=== PATIENT | female | born 1960 | race Caucasian/White ===

== ENCOUNTER 2017-08-17 16:19 | Observation (INO) ==
[2017-08-17] MEDS ORDERED: Ondansetron 4 MG/2 ML VIAL IVP ONE (16:28)
[2017-08-17] MEDS ORDERED: *HR* FentaNYL (PF) 100 MCG/2 ML VIAL IVP ONE (16:28)
[2017-08-17] MEDS ORDERED: Famotidine 20 MG/2 ML VIAL IVP ONE (16:28)
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
[2017-08-17 17:48] LABS: Basophils % 0.3 %; Eosinophils % 0.2 %; Hematocrit 40.9 % (35.3-44.9); Hemoglobin 13.3 g/dL (11.5-15.4); Immature Granulocytes % 0.4 % (0-4); Lymphocytes # 2.1 K/mcL (0.6-4.6); Lymphocytes % 18.5 %; Mean Corpuscular HGB Conc 32.5 g/dL (31.6-35.5); Mean Corpuscular Hemoglobin 27.3 pg (28.0-33.3); Mean Platelet Volume 10.8 fL (9.4-12.4); Monocytes # 0.7 K/mcL (0.0-1.3); Monocytes % 5.8 %; Neutrophils # 8.6 K/mcL (1.6-8.9); Platelet Count 201 K/mcL (140-400); Red Blood Count 4.87 M/mcL (3.82-4.97); Red Cell Distribution Width 13.7 % (11.5-14.5); Segmented Neutrophils % 74.8 %
[2017-08-17 17:55] LABS: INR 4.2
[2017-08-17 18:09] LABS: Prothrombin Time 47.2 Seconds (9.4-12.1)
[2017-08-17 18:10] LABS: Alanine Aminotransferase 11 Units/L (7-52); Albumin 3.9 g/dL (3.5-5.7); Albumin/Globulin Ratio 1.3 (1.1-2.2); Alkaline Phosphatase 83 Units/L (34-104); Amylase 22 Units/L (29-103); Aspartate Amino Transferase 14 Units/L (13-39); BUN/Creatinine Ratio 18 (6-26); Bilirubin,Total 0.3 mg/dL (0.3-1.0); Blood Urea Nitrogen 15 mg/dL (6-20); Calcium 8.8 mg/dL (8.6-10.3); Carbon Dioxide 21 mEq/L (23-29); Chloride 110 mEq/L (98-107); Glucose 127 mg/dL (70-105); Lipase 11 Units/L (11-82); Osmolality,Calculated 290 (280-300); Potassium 3.7 mEq/L (3.5-5.1); Sodium 139 mEq/L (136-145); Total Protein 6.9 g/dL (6.4-8.9); Troponin I < 0.03 ng/mL (< 0.04); eGFR For African Americans > 60 (> 60); eGFR For Non-African Americans > 60 (> 60)
[2017-08-17] MEDS ORDERED: Ipratropium/Albuterol Neb 3 ML IH ONE (18:32)
[2017-08-17 18:35] LABS: Bilirubin,Urine Small (Negative); Blood,Urine Moderate (Negative); Clarity,Urine Clear (Clear); Color,Urine Yellow (Yellow); Glucose,Urine (UA) Normal (Normal); Ketones,Urine 15 mg/dL (Negative); Leukocyte Esterase,Urine Negative (Negative); Nitrite,Urine Negative (Negative); PH,Urine 5.5 pH Units (5.0-8.0); Protein,Urine 100 mg/dL (Neg-Trace); Specific Gravity,Urine > 1.030 (1.010-1.025); Urobilinogen,Urine Normal (Normal)
[2017-08-17 18:37] LABS: Bacteria,Urine Few per hpf (None-Few); Hyaline Casts,Urine Moderate per lpf (None-Few); Squamous Epithelial Cell,Urine Many per lpf (None-Few)
[2017-08-17] MEDS ORDERED: methylPREDNISolone 125 MG/2 ML VIAL IVP ONE (18:39)
[2017-08-17 19:26] LABS: RBC,Urine 0-3 per hpf (0-3)
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
[2017-08-17] MEDS ORDERED: Furosemide 20 MG TABLET PO PRN (19:52)
[2017-08-17] MEDS ORDERED: Naloxone 0.4 MG/ML INJ IVP PRN (19:53)
[2017-08-17] MEDS ORDERED: Ondansetron 4 MG/2 ML VIAL IVP PRN (19:55)
[2017-08-17] MEDS ORDERED: Azithromycin 250 MG TABLET PO SCH (20:00)
[2017-08-17] MEDS: levoFLOXacin 750 MG TABLET PO SCH (22:06)
[2017-08-17] MEDS: Gabapentin 300 MG CAPSULE PO SCH (22:06)
[2017-08-17] MEDS: Famotidine 20 MG TABLET PO SCH (22:07)
[2017-08-17] MEDS: Nicotine 21 MG PATCH.TD24 TD SCH (22:07)
[2017-08-17] MEDS: Mirtazapine 15 MG TABLET PO SCH (22:07)
[2017-08-18] MEDS: Acetaminophen 325 MG TABLET PO PRN ×2 (03:58→20:31)
[2017-08-18 04:21] LABS: Basophils % 0.2 %; Hematocrit 41.8 % (35.3-44.9); Hemoglobin 13.5 g/dL (11.5-15.4); Immature Granulocytes % 0.5 % (0-4); Lymphocytes # 0.9 K/mcL (0.6-4.6); Lymphocytes % 14.9 %; Mean Corpuscular HGB Conc 32.3 g/dL (31.6-35.5); Mean Corpuscular Hemoglobin 26.8 pg (28.0-33.3); Mean Corpuscular Volume 83.1 fL (83.0-100.0); Mean Platelet Volume 10.9 fL (9.4-12.4); Monocytes # 0.1 K/mcL (0.0-1.3); Neutrophils # 4.9 K/mcL (1.6-8.9); Platelet Count 201 K/mcL (140-400); Red Blood Count 5.03 M/mcL (3.82-4.97); Red Cell Distribution Width 13.7 % (11.5-14.5); Segmented Neutrophils % 83.4 %
[2017-08-18 04:46] LABS: BUN/Creatinine Ratio 17 (6-26); Blood Urea Nitrogen 16 mg/dL (6-20); Carbon Dioxide 21 mEq/L (23-29); Chloride 110 mEq/L (98-107); Glucose 240 mg/dL (70-105); Magnesium 1.9 mg/dL (1.6-2.6); Osmolality,Calculated 299 (280-300); Sodium 140 mEq/L (136-145); eGFR For African Americans > 60 (> 60); eGFR For Non-African Americans > 60 (> 60)
[2017-08-18] MEDS ORDERED: Nitroglycerin 1 INCH/GM PACKET TP ONE (04:52)
[2017-08-18 04:55] LABS: INR 5.6; Prothrombin Time 62.2 Seconds (9.4-12.1)
[2017-08-18] MEDS: traMADol 50 MG TABLET PO PRN ×2 (05:50→14:55)
[2017-08-18] MEDS: predniSONE 20 MG TABLET PO SCH (08:30)
[2017-08-18] MEDS: levoFLOXacin 750 MG TABLET PO SCH (08:30)
[2017-08-18] MEDS: Isosorbide MONOnitrate (24 HR) 30 MG TAB.ER.24H PO SCH (08:32)
[2017-08-18] MEDS: Gabapentin 300 MG CAPSULE PO SCH ×2 (08:32→21:32)
[2017-08-18] MEDS: Famotidine 20 MG TABLET PO SCH (08:33)
[2017-08-18] MEDS: Nicotine 21 MG PATCH.TD24 TD SCH (08:33)
--- NOTE | 2017-08-18 15:18 | Internal Med Progress Note ---
Date of Encounter: 08/18/17 Time of Encounter: 16:20 - Assessment and plan (1) Supratherapeutic INR Current Visit: Yes Status: Acute Assessment and plan: Prior history of CVA 5 years ago. Coumadin held, 5.6 today. Continue to have pharmacy dose. (2) Acute bronchitis Current Visit: Yes Status: Acute Assessment and plan: Likely COPD, though no formal diagnosis. Pt is a smoker. Continue po steroids, Duonebs, Levaquin po. 02 as needed to maintain sats > 92% Qualifiers: Bronchitis organism: unspecified organism Qualified Code(s): J20.9 - Acute bronchitis, unspecified (3) Coronary artery disease Current Visit: Yes Status: Chronic Assessment and plan: Patient denies chest pain. Continue beta molly, Imdur, ACEI, Crestor, warfarin. Continue telemetry Qualifiers: Coronary Disease-Associated Artery/Lesion type: [place] artery [place] vs. transplanted heart: [place] heart Associated angina: without angina Qualified Code(s): I25.10 - Atherosclerotic heart disease of [place] coronary artery without angina pectoris (4) DVT prophylaxis Current Visit: Yes Status: Acute Assessment and plan: Patient is supratherapeutic on Coumadin. Pharmacy to dose. (5) Depression Current Visit: Yes Status: Chronic Assessment and plan: Chronic. Continue home medications. Qualifiers: Depression Type: major depressive disorder Major depression recurrence: unspecified whether recurrent Active/Remission status: in full remission Qualified Code(s): F32.5 - Major depressive disorder, single episode, in full remission (6) Tobacco abuse Current Visit: Yes Status: Acute Assessment and plan: Nicotine patch. Continue smoking cessation education. (7) Abdominal pain Current Visit: Yes Status: Acute Assessment and plan: Patient reports diffuse abdominal pain. Onset 2-3 weeks. She denies nausea or vomiting. Her abdomen is soft, rounded, tender to palpation in the upper abdomen. Abdomen and pelvis CT and chest x-ray negative for intra-abdominal or significant abnormalities. Urine with a moderate amount of blood, 5-15 white cells, many epithelial cells, small amount of bilirubin, moderate hyaline casts. No indication of infection. Pt suggests that her pain might be due to withdrawl from Ativan and narcotic pain medications, she stopped taking Ativan in 02/26 and pain medications in . *Retroperitoneal US ordered, will consider nephrology consult based on results. Tylenol for pain Abdomen/Pelvis CT 08/17/17 16:27 IMPRESSION: No acute intra-abdominal abnormality identified. No evident diverticulitis. Normal appendix. Normal amount of colonic stool. Mild diverticulosis of the left colon. D/ / Arun Wharton MD / Arun Wharton MD Interpreting Provider: Arun Wharton MD Chest X-Ray 08/17/17 16:27 IMPRESSION: Minimal pulmonary vascular congestion. Thoracic aortic endograft. No other significant abnormality. D/ / Arun Wharton MD / Arun Wharton MD Interpreting Provider: Arun Wharton MD *Retroperitoneal US ordered, will consider nephrology consult based on results. Qualifiers: Abdominal location: epigastric Qualified Code(s): R10.13 - Epigastric pain - Time Spent With Patient Total time spent is greater than 50% in coordination of care (as documented) at patient's floor/unit and/or counseling patient: less than 15 minutes - Subjective Interval history: Patient was seen and assessed at bedside at 11:20 AM. Patient was alert, awake , oriented, she reports 2-3 weeks history of upper abdominal pain. Patient also reports that she takes her warfarin as she is supposed to and she has a home monitor which has been fine. She denies shortness of breath and is not requiring supplemental oxygen at this time. Her abdomen is soft, nontender to palpation. She states that she is not sure of her abdominal pain is due to having her Ativan and narcotic pain medications taken away from her right primary care. She reports that she is upset about this and she is in the process of changing family doctors right now. - Constitutional Vitals: Temp Pulse Resp BP Pulse Ox 97.8 F 68 12 174/98 98 08/18/17 10:34 08/18/17 10:34 08/18/17 10:34 08/18/17 10:21 08/18/17 10:34 General appearance: Present: cooperative, A&O X 3, pleasant, no acute distress, answers questions appropriately - Head Head exam: Present: atraumatic, normal inspection, normocephalic - Eye Eye exam: Present: normal appearance, conjuntiva pink, sclera anicteric - Neck Neck exam general surgery: Present: supple, trachea midline. Absent: lymphadenopathy, tenderness - Respiratory Respiratory exam: Present: CTAB. Absent: accessory muscle use, rales, rhonchi, wheezes - Cardiovascular Cardiovascular exam: Present: RRR, +S1, +S2. Absent: diastolic murmur, gallop, rubs, systolic murmur - GI/Abdominal GI/Abdominal exam: Present: normal bowel sounds, soft. Absent: distended, hepatomegaly, tenderness - Extremities Exam Extremities exam: Present: normal capillary refill, normal inspection, warm, radial pulses palpable and symmetrical. Absent: calf tenderness, cyanotic, pedal edema, tenderness - Neurological Exam Neurological exam: Present: alert, oriented X3, no focal deficits. Absent: facial droop, speech deficit - Skin Skin exam: Present: dry, intact, normal color, warm. Absent: rash Internal Medicine: Result - Labs CBC & Chem 7: 08/18/17 03:48 08/18/17 03:48 Labs: Short CBC 08/18/17 Range/Units 03:48 WBC 5.8 (4.3-11.1) K/mcL Hgb 13.5 (11.5-15.4) g/dL Hct 41.8 (35.3-44.9) % Plt Count 201 (140-400) K/mcL Neutrophils # 4.9 (1.6-8.9) K/mcL BMP 08/18/17 03:48 Sodium 140 Potassium 5.0 D Chloride 110 H Carbon Dioxide 21 L BUN 16 Creatinine 0.92 Glucose 240 H Calcium 9.0 - ABG Interpretation ABG results: PT/INR, D-dimer PT 62.2 Seconds (9.4-12.1) H* 08/18/17 03:48 Consult Discharge Plan - Plan Referrals: Angie Bermudez [Primary Care Provider] - 08/23/17 2:40 pm
--- NOTE | 2017-08-18 17:41 | Electrocardiograph Report ---
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
[2017-08-18] MEDS ORDERED: Warfarin perPT PO PRN (18:00)
[2017-08-18] MEDS: Mirtazapine 15 MG TABLET PO SCH (21:32)
[2017-08-19 02:47] LABS: Basophils % 0.4 %; Eosinophils % 0.1 %; Hematocrit 41.7 % (35.3-44.9); Hemoglobin 13.4 g/dL (11.5-15.4); Immature Granulocytes % 0.4 % (0-4); Immature Platelets 3.6 % (1.1-6.1); Lymphocytes # 3.2 K/mcL (0.6-4.6); Lymphocytes % 30.1 %; Mean Corpuscular HGB Conc 32.1 g/dL (31.6-35.5); Mean Corpuscular Hemoglobin 26.8 pg (28.0-33.3); Mean Corpuscular Volume 83.4 fL (83.0-100.0); Mean Platelet Volume 10.4 fL (9.4-12.4); Monocytes # 0.7 K/mcL (0.0-1.3); Monocytes % 6.5 %; Neutrophils # 6.6 K/mcL (1.6-8.9); Platelet Count 236 K/mcL (140-400); Red Cell Distribution Width 14.1 % (11.5-14.5); Segmented Neutrophils % 62.5 %
[2017-08-19 02:54] LABS: INR 3.5; Prothrombin Time 38.6 Seconds (9.4-12.1)
[2017-08-19 03:09] LABS: BUN/Creatinine Ratio 24 (6-26); Blood Urea Nitrogen 23 mg/dL (6-20); Calcium 9.3 mg/dL (8.6-10.3); Carbon Dioxide 24 mEq/L (23-29); Chloride 111 mEq/L (98-107); Glucose 118 mg/dL (70-105); Osmolality,Calculated 297 (280-300); Sodium 141 mEq/L (136-145); eGFR For African Americans > 60 (> 60); eGFR For Non-African Americans 60 (> 60)
[2017-08-19] MEDS: Acetaminophen 325 MG TABLET PO PRN ×3 (03:22→21:33)
[2017-08-19] MEDS ORDERED: Menthol 9.1 MG LOZENGE PO PRN (04:42)
[2017-08-19] MEDS: traMADol 50 MG TABLET PO PRN ×2 (05:02→16:38)
[2017-08-19] MEDS: predniSONE 20 MG TABLET PO SCH (07:52)
[2017-08-19] MEDS: Isosorbide MONOnitrate (24 HR) 30 MG TAB.ER.24H PO SCH (07:53)
[2017-08-19] MEDS: levoFLOXacin 750 MG TABLET PO SCH (07:53)
[2017-08-19] MEDS: Famotidine 20 MG TABLET PO SCH (07:53)
[2017-08-19] MEDS: Gabapentin 300 MG CAPSULE PO SCH ×2 (07:53→21:34)
[2017-08-19] MEDS: Nicotine 21 MG PATCH.TD24 TD SCH (07:54)
[2017-08-19] MEDS ORDERED: amLODIPine 5 MG TABLET PO SCH (15:30)
--- NOTE | 2017-08-19 15:33 | Internal Med Progress Note ---
Date of Encounter: 08/19/17 Time of Encounter: 12:15 - Assessment and plan (1) Supratherapeutic INR Current Visit: Yes Status: Acute Assessment and plan: Prior history of CVA 5 years ago. Coumadin held and therapeutic at 3.5 today. Continue to have pharmacy dose. (2) Acute bronchitis Current Visit: Yes Status: Acute Assessment and plan: Likely COPD, though no formal diagnosis. Pt is a smoker. Continue po steroids, Duonebs, Levaquin po. 02 as needed to maintain sats > 92% Likely discharge tomorrow on po medications. Qualifiers: Bronchitis organism: unspecified organism Qualified Code(s): J20.9 - Acute bronchitis, unspecified (3) Coronary artery disease Current Visit: Yes Status: Chronic Assessment and plan: Patient denies chest pain. Continue beta molly, Imdur, ACEI, Crestor, warfarin. Continue telemetry Qualifiers: Coronary Disease-Associated Artery/Lesion type: [place] artery [place] vs. transplanted heart: [place] heart Associated angina: without angina Qualified Code(s): I25.10 - Atherosclerotic heart disease of [place] coronary artery without angina pectoris (4) DVT prophylaxis Current Visit: Yes Status: Acute Assessment and plan: Patient is on Coumadin. Pharmacy to dose. (5) Depression Current Visit: Yes Status: Chronic Assessment and plan: Continue home medications. Qualifiers: Depression Type: major depressive disorder Major depression recurrence: unspecified whether recurrent Active/Remission status: in full remission Qualified Code(s): F32.5 - Major depressive disorder, single episode, in full remission (6) Tobacco abuse Current Visit: Yes Status: Acute Assessment and plan: Nicotine patch. Continue smoking cessation education. Rx for home. (7) Abdominal pain Current Visit: Yes Status: Acute Assessment and plan: Patient reports diffuse abdominal pain, some better today. She denies nausea or vomiting. Her abdomen is soft, rounded, tender to palpation in the upper abdomen. Repeat UA ordered to compare to prior. *Retroperitoneal US ordered, will consider nephrology consult based on results. Pending. Tylenol for pain Abdomen/Pelvis CT 08/17/17 16:27 IMPRESSION: No acute intra-abdominal abnormality identified. No evident diverticulitis. Normal appendix. Normal amount of colonic stool. Mild diverticulosis of the left colon. D/ / Arun Wharton MD / Arun Wharton MD Interpreting Provider: Arun Wharton MD Chest X-Ray 08/17/17 16:27 IMPRESSION: Minimal pulmonary vascular congestion. Thoracic aortic endograft. No other significant abnormality. D/ / Arun Wharton MD / Arun Wharton MD Interpreting Provider: Arun Wharton MD *Retroperitoneal US ordered, will consider nephrology consult based on results. Qualifiers: Abdominal location: epigastric Qualified Code(s): R10.13 - Epigastric pain - Time Spent With Patient Total time spent is greater than 50% in coordination of care (as documented) at patient's floor/unit and/or counseling patient: less than 15 minutes - Subjective Interval history: Patient was seen and assessed at bedside at 1215 AM. Patient was alert, awake, oriented, and states that her abdominal pain is some better today. She denies shortness of breath and is not requiring supplemental oxygen at this time. Denies n/v/d, chest pain, headache, vision changes. Awaiting results for US prior to discharge. - Constitutional Vitals: Temp Pulse Resp BP Pulse Ox 97.4 F L 52 16 166/85 98 08/19/17 11:36 08/19/17 11:36 08/19/17 11:36 08/19/17 11:36 08/19/17 11:36 General appearance: Present: cooperative, A&O X 3, pleasant, no acute distress, answers questions appropriately - Head Head exam: Present: atraumatic, normal inspection, normocephalic - Eye Eye exam: Present: normal appearance, conjuntiva pink, sclera anicteric - Neck Neck exam general surgery: Present: supple, trachea midline. Absent: lymphadenopathy, tenderness - Respiratory Respiratory exam: Present: CTAB. Absent: accessory muscle use, chest wall tenderness, rales, rhonchi, wheezes - Cardiovascular Cardiovascular exam: Present: RRR, +S1, +S2. Absent: diastolic murmur, gallop, rubs, systolic murmur - GI/Abdominal GI/Abdominal exam: Present: normal bowel sounds, soft, tenderness. Absent: distended, hepatomegaly - Extremities Exam Extremities exam: Present: normal capillary refill, normal inspection, warm, radial pulses palpable and symmetrical. Absent: calf tenderness, cyanotic, pedal edema, tenderness - Neurological Exam Neurological exam: Present: alert, oriented X3, no focal deficits. Absent: facial droop, speech deficit - Skin Skin exam: Present: dry, intact, normal color, warm. Absent: rash Internal Medicine: Result - Labs CBC & Chem 7: 08/19/17 02:35 08/19/17 02:35 Labs: Short CBC 08/19/17 Range/Units 02:35 WBC 10.6 D (4.3-11.1) K/mcL Hgb 13.4 (11.5-15.4) g/dL Hct 41.7 (35.3-44.9) % Plt Count 236 (140-400) K/mcL Neutrophils # 6.6 (1.6-8.9) K/mcL BMP 08/19/17 02:35 Sodium 141 Potassium 4.0 Chloride 111 H Carbon Dioxide 24 BUN 23 H Creatinine 0.96 Glucose 118 H Calcium 9.3 - ABG Interpretation ABG results: PT/INR, D-dimer PT 38.6 Seconds (9.4-12.1) H 08/19/17 02:35 - Impressions Impressions Retroperitoneum Ultrasound 08/19/17 13:30 IMPRESSION: Unremarkable ultrasound of the kidneys and urinary bladder. D/ / Rex Lamas / Rex Lamas Interpreting Provider: Rex Lamas Consult Discharge Plan - Plan Referrals: Angie Bermudez [Primary Care Provider] - 08/23/17 2:40 pm
[2017-08-19 19:57] LABS: Bilirubin,Urine Negative (Negative); Blood,Urine Small (Negative); Clarity,Urine Clear (Clear); Color,Urine Yellow (Yellow); Glucose,Urine (UA) Normal (Normal); Ketones,Urine Negative (Negative); Leukocyte Esterase,Urine Negative (Negative); Nitrite,Urine Negative (Negative); PH,Urine 5.5 pH Units (5.0-8.0); Protein,Urine 30 mg/dL (Neg-Trace); Specific Gravity,Urine >= 1.030 (1.010-1.025); Urobilinogen,Urine Normal (Normal)
[2017-08-19] MEDS ORDERED: Melatonin 3 MG TABLET PO SCH (21:00)
[2017-08-19 21:26] LABS: Mucus,Urine Many (Few); Squamous Epithelial Cell,Urine Many per lpf (None-Few)
[2017-08-19 21:27] LABS: Bacteria,Urine Few per hpf (None-Few); Hyaline Casts,Urine Few per lpf (None-Few); RBC,Urine 0-3 per hpf (0-3)
[2017-08-19] MEDS: Mirtazapine 15 MG TABLET PO SCH (21:34)
[2017-08-20 03:59] LABS: INR 2.4
[2017-08-20 07:31] VITALS: BP 148/69
[2017-08-20] MEDS ORDERED: amLODIPine 5 MG TABLET PO SCH (09:00)
[2017-08-20] MEDS: Nicotine 21 MG PATCH.TD24 TD SCH (09:04)
[2017-08-20] MEDS: Famotidine 20 MG TABLET PO SCH (09:05)
[2017-08-20] MEDS: Isosorbide MONOnitrate (24 HR) 30 MG TAB.ER.24H PO SCH (09:05)
[2017-08-20] MEDS: predniSONE 20 MG TABLET PO SCH (09:05)
[2017-08-20] MEDS: levoFLOXacin 750 MG TABLET PO SCH (09:05)
[2017-08-20] MEDS: traMADol 50 MG TABLET PO PRN (09:06)
[2017-08-20] MEDS: Gabapentin 300 MG CAPSULE PO SCH (09:06)
--- NOTE | 2017-08-20 14:18 | Discharge Summary ---
- NOTES TO OUTPATIENT PROVIDER Notes to Outpatient Provider: Pt was admitted for SOB, upper abdominal pain, dry cough, subjective fevers and chills. Pt had mild leukocytosis and supratherapeutic INR. Both have resolved. Warfarin was held for 2 nights and INR normalized. Date of Encounter: 08/20/17 Time of Encounter: 10:40 - Discharge Diagnosis (1) Supratherapeutic INR Priority: Secondary Status: Resolved Assessment and Plan: 2.4 today. Therapeutic level. (2) Acute bronchitis Priority: Secondary Status: Acute Assessment and Plan: Likely COPD, though no formal diagnosis. Continue po steroids, Duonebs, Levaquin po. 02 as needed to maintain sats > 92% I have encouraged smoking cessation, patient verbalized understanding and agreement. Qualifiers: Bronchitis organism: unspecified organism Qualified Code(s): J20.9 - Acute bronchitis, unspecified (3) Coronary artery disease Priority: Secondary Status: Chronic Assessment and Plan: Patient denies chest pain. Continue beta molly, Imdur, ACEI, Crestor, warfarin. Qualifiers: Coronary Disease-Associated Artery/Lesion type: [place] artery [place] vs. transplanted heart: [place] heart Associated angina: without angina Qualified Code(s): I25.10 - Atherosclerotic heart disease of [place] coronary artery without angina pectoris (4) DVT prophylaxis Priority: Secondary Status: Acute Assessment and Plan: Patient is on Coumadin. Pharmacy to dose. INR therapeutic now. (5) Depression Priority: Secondary Status: Chronic Assessment and Plan: Continue home medications. Qualifiers: Depression Type: major depressive disorder Major depression recurrence: unspecified whether recurrent Active/Remission status: in full remission Qualified Code(s): F32.5 - Major depressive disorder, single episode, in full remission (6) Tobacco abuse Priority: Secondary Status: Chronic Assessment and Plan: Nicotine patch. Continue smoking cessation education. NicoDerm patch prescription for home. (7) Abdominal pain Priority: Secondary Status: Acute Assessment and Plan: Abdominal pain has resolved. She denies nausea or vomiting. Originally, urine was concerning due to protein and states, likely due to mild dehydration. Retroperitoneal ultrasound was unremarkable and urine has improved. Recommend follow-up with primary care for reevaluation after discharge. Abdomen/Pelvis CT 08/17/17 16:27 IMPRESSION: No acute intra-abdominal abnormality identified. No evident diverticulitis. Normal appendix. Normal amount of colonic stool. Mild diverticulosis of the left colon. D/ / Arun Wharton MD / Arun Wharton MD Interpreting Provider: Arun Wharton MD Retroperitoneum Ultrasound 08/19/17 13:30 IMPRESSION: Unremarkable ultrasound of the kidneys and urinary bladder. D/ / Rex Lamas / Rex Lamas Interpreting Provider: Rex Lamas Qualifiers: Abdominal location: epigastric Qualified Code(s): R10.13 - Epigastric pain (8) Hypertension Priority: Secondary Status: Chronic Assessment and Plan: Chronic. Patient with mild hypertension, Norvasc has been added. Patient tolerating well. Continue follow-up with primary care for evaluation medication adjustments. Qualifiers: Hypertension type: unspecified Qualified Code(s): I10 - Essential (primary ) hypertension Hospital course: Ms. Long is a 56 year old female Discharge discussed with: patient, nurse Time spent discussing smoking cessation with patient: 3 to 10 minutes - Time Spent with Patient Total time spent providing and/or coordinating discharge services: Less than 30 minutes - Discharge Medications Prescriptions: amLODIPine [Norvasc] 5 mg PO DAILY #30 tablet levoFLOXacin [Levaquin] 750 mg PO DAILY #5 tablet Lisinopril [Zestril] 10 mg PO DAILY #30 tablet Nicotine Patch [Nicoderm] 21 mg TD DAILY #30 patch.td24 predniSONE [PredniSONE] 10 mg PO DAILY #31 tablet Home Medications: Atenolol [Tenormin] 12.5 mg PO DAILY 08/17/17 [History] Docusate Sodium [Dok] 100 mg PO BID PRN 08/17/17 [History] Furosemide [Lasix] 20 mg PO DAILY PRN 08/17/17 [History] Gabapentin [Neurontin] 800 mg PO QID 08/17/17 [History] Isosorbide MONOnitrate (24 HR) [Imdur] 30 mg PO DAILY 08/17/17 [History] Meloxicam [Mobic] 15 mg PO DAILY 08/17/17 [History] Mirtazapine [Remeron] 15 mg PO HS 08/17/17 [History] Potassium Chloride [Klor-Con 10] 10 meq PO DAILY PRN 08/17/17 [History] Ranitidine HCl [Acid Licensed Clinical Psychologist] 150 mg PO BID 08/17/17 [History] Rosuvastatin Calcium 40 mg PO HS 08/17/17 [History] Warfarin [Coumadin] 3 mg PO DAILY 08/17/17 [History] Lisinopril [Zestril] 10 mg PO DAILY #30 tablet 08/19/17 [Rx] Nicotine Patch [Nicoderm] 21 mg TD DAILY #30 patch.td24 08/19/17 [Rx] amLODIPine [Norvasc] 5 mg PO DAILY #30 tablet 08/19/17 [Rx] levoFLOXacin [Levaquin] 750 mg PO DAILY #5 tablet 08/19/17 [Rx] predniSONE [PredniSONE] 10 mg PO DAILY #31 tablet 08/19/17 [Rx] Allergies/Adverse Reactions: 3 Allergy/AdvReac Type Severity Reaction Status Date / Time Sulfa (Sulfonamide Allergy Swelling Verified 08/17/17 18:55 Antibiotics) of Lip/Tongue/Throat azithromycin AdvReac Abdominal Verified 08/17/17 18:55 Pain Date of admission: 08/17/17 18:47 Primary care physician: Angie Bermudez Consults: 08/18/17 10:08 PICC Consult [Consult to Invasive Line Access Team] [CONS] Routine Reason for Consult: limited IV access Line Type: EPIV PICC line indications: Limited vascular access Discharging clinician: Gertrude Mccauley Anticipated date of discharge: 08/20/17 - Constitutional Vitals: Temp Pulse Resp BP Pulse Ox 97.6 F 61 15 148/69 95 08/20/17 07:31 08/20/17 07:31 08/20/17 07:31 08/20/17 07:31 08/20/17 07:31 General appearance: Present: cooperative, A&O X 3, pleasant, no acute distress, answers questions appropriately - Head Head exam: Present: atraumatic, normal inspection, normocephalic - Eye Eye exam: Present: normal appearance, conjuntiva pink, sclera anicteric - Neck Neck exam general surgery: Present: supple, trachea midline. Absent: lymphadenopathy, tenderness - Respiratory Respiratory exam: Present: CTAB. Absent: accessory muscle use, chest wall tenderness, rales, respiratory distress, rhonchi, wheezes - Cardiovascular Cardiovascular exam: Present: RRR, +S1, +S2. Absent: diastolic murmur, gallop, rubs, systolic murmur - GI/Abdominal GI/Abdominal exam: Present: normal bowel sounds, soft, no peritoneal signs. Absent: distended, hepatomegaly, tenderness - Extremities Exam Extremities exam: Present: normal capillary refill, normal inspection, warm, radial pulses palpable and symmetrical. Absent: calf tenderness, cyanotic, pedal edema, tenderness - Neurological Exam Neurological exam: Present: alert, oriented X3, no focal deficits. Absent: altered, facial droop, speech deficit - Skin Skin exam: Present: dry, intact, normal color, warm. Absent: rash - Patient Status Disposition: Home, Self-Care Condition: Good Functional capacity at discharge: independent ambulation Overall status at discharge: patient is back to baseline - Discharge Instructions Follow Up With: Angie Bermudez [Primary Care Provider] - 08/23/17 2:40 pm Additional Instructions: Follow up with PCP in the next 5-7 days for a recheck. Monitor your blood pressure daily, record values and share with PCP at the next visit in 5-7 days. Return to the ER as needed for any other problems or concerns or if your symptoms return or worsen. Take your medications as directed and return to your diet and medications as tolerated. - Diet and Activity Activity: increase activity as tolerated, return to work once cleared by your PCP/specialist Diet: advance to your usual diet
[2017-08-20] MEDS ORDERED: *HR* Warfarin 2.5 MG TABLET PO ONE (18:00)
== END 2017-08-20 15:58 | disposition home or self-care (01) ==
LOC: 3BNU 16:19 → EMEROO 16:19 → 3BNU 19:40
PROVIDERS: ADMIT Internal Medicine; ATTEND Internal Medicine

== ENCOUNTER 2017-12-11 11:52 | Observation (INO) ==
[2017-12-11] MEDS ORDERED: 0.9 % Sodium Chloride 1,000 ML IVC ONE ×2 (11:59→12:03)
[2017-12-11] MEDS ORDERED: Isovue-370 500 ML INFUS..BTL IV ONE (12:01)
--- NOTE | 2017-12-11 12:53 | Emergency Department Note ---
Disposition Clinical Impression: Bradycardia, Shoulder pain, Neck pain, JERMAINE (acute kidney injury), Pulmonary nodule Disposition: Admitted As Inpatient Condition: Fair General Adult HPI - General Chief complaint: ED Chest Pain Stated complaint: Cardiac Time Seen by Provider: 12/11/17 11:58 Source: EMS Limitations: no limitations Nursing Notes Reviewed: Yes Vital Signs Reviewed: Yes - History of Present Illness Pain Scale: 8 - Related Data Home Medications Medication Instructions Recorded Confirmed Atenolol [Tenormin] 12.5 mg PO DAILY 08/17/17 12/11/17 Docusate Sodium [Dok] 100 mg PO BID PRN 08/17/17 12/11/17 Furosemide [Lasix] 20 mg PO DAILY PRN 08/17/17 12/11/17 Gabapentin [Neurontin] 800 mg PO QID 08/17/17 12/11/17 Isosorbide MONOnitrate (24 HR) 30 mg PO DAILY 08/17/17 12/11/17 [Imdur] Meloxicam [Mobic] 15 mg PO DAILY 08/17/17 12/11/17 Mirtazapine [Remeron] 15 mg PO HS 08/17/17 12/11/17 Potassium Chloride [Klor-Con 10] 10 meq PO DAILY PRN 08/17/17 12/11/17 Ranitidine HCl [Acid Urban Designer] 150 mg PO BID 08/17/17 12/11/17 Rosuvastatin Calcium 40 mg PO HS 08/17/17 12/11/17 Warfarin [Coumadin] 3 mg PO DAILY 08/17/17 12/11/17 Albuterol Sulfate [Ventolin Hfa] 2 puff IH Q4H PRN 12/11/17 12/11/17 Amlodipine Besylate 10 mg PO DAILY 12/11/17 12/11/17 Aspirin [Adult Aspirin] 81 mg PO DAILY 12/11/17 12/11/17 Cholecalciferol (D-3) [Vitamin D] 1,000 unit PO DAILY 12/11/17 12/11/17 Fluticasone/Vilanterol [Breo 1 puff IH DAILY 12/11/17 12/11/17 Ellipta 100-25 Mcg INH] Metformin HCl 500 mg PO BID 12/11/17 12/11/17 hydrOXYzine pamoate [HydrOXYzine 25 - 50 mg PO Q6H PRN 12/11/17 12/11/17 Pamoate] Previous Rx's Medication Instructions Recorded Lisinopril [Zestril] 10 mg PO DAILY #30 tablet 08/19/17 Allergies Allergy/AdvReac Type Severity Reaction Status Date / Time Sulfa (Sulfonamide Allergy Swelling Verified 08/17/17 18:55 Antibiotics) of Lip/Tongue/Throat azithromycin AdvReac Abdominal Verified 08/17/17 18:55 Pain Past Medical History - Past Medical History Medical history: Reports: CVA, other Surgical history: Reports: , other Psychiatric history: Reports: anxiety, depression, panic disorder DOCUMENT IMPROVEMENT SPECIALIST history: Reports: no DOCUMENT IMPROVEMENT SPECIALIST history - Social History Smoking Status: Current every day smoker Smokeless Tobacco Status: No Alcohol use: Reports: none Drug use: Reports: none Physical Exam - General Limitations: no limitations General appearance: alert Course Vital Signs Temperature 97.7 F 12/11/17 11:53 Pulse Rate 67 12/11/17 11:53 Respiratory Rate 16 12/11/17 11:53 Blood Pressure 67/49 12/11/17 11:53 O2 Sat by Pulse Oximetry 100 12/11/17 11:53 Temperature 97.7 F 12/11/17 11:53 Pulse Rate 65 12/11/17 14:41 Respiratory Rate 20 12/11/17 14:41 Blood Pressure 127/81 12/11/17 14:41 O2 Sat by Pulse Oximetry 96 12/11/17 14:41 Oxygen Delivery Oxygen Delivery Room Air Medical Decision Making - [facility] Narrative Medical decision making narrative: Abdomen CTA 12/11/17 12:01 IMPRESSION: Patent vascular stent in the descending thoracic aorta starting just distal to origin of the left carotid artery, without focal stenosis. The origin of the left subclavian artery is covered by the stent and occluded, with patent left common carotid to subclavian artery bypass. The remainder of origins of the arch vessels and origin of the left vertebral artery are patent. Mild bronchial wall thickening, likely related to small airway disease or bronchiolitis. Mild patchy areas of ground-glass attenuation bilaterally, most pronounced in the right upper lobe and right lower lobe, likely related to minimal infection/inflammation. 5 mm lung nodule in the right lower lobe. Follow-up recommendation is listed below. 1.5 cm thyroid nodule at the inferior aspect of the isthmus. Follow-up thyroid ultrasound is recommended. No acute abnormality in the abdomen or pelvis. Question of 6 mm cystic lesion in the head of the pancreas, nonspecific, may be related to a small pseudocyst or an intraductal papillary mucinous neoplasm. Follow-up MRI abdomen pancreatic mass protocol is recommended RECOMMENDATIONS: Fleischner Society guidelines for follow-up and management of incidentally detected pulmonary nodules: Single Solid Nodule: Nodule size less than 6 mm In a low-risk patient, no routine follow-up. In a high-risk patient, optional CT at 12 months. - Low risk patients include individuals with minimal or absent history of smoking and other known risk factors. - High risk patients include individuals with a history or smoking or known risk factors. Radiology 2017 http://pubs.[facility]na.org/doi/full/10.1148/radiol.[email or web address] D/ / Yeison Mccarty MD / Yeison Mccarty MD Interpreting Provider: Yeison Mccarty MD Chest CTA 12/11/17 12:01 IMPRESSION: Patent vascular stent in the descending thoracic aorta starting just distal to origin of the left carotid artery, without focal stenosis. The origin of the left subclavian artery is covered by the stent and occluded, with patent left common carotid to subclavian artery bypass. The remainder of origins of the arch vessels and origin of the left vertebral artery are patent. Mild bronchial wall thickening, likely related to small airway disease or bronchiolitis. Mild patchy areas of ground-glass attenuation bilaterally, most pronounced in the right upper lobe and right lower lobe, likely related to minimal infection/inflammation. 5 mm lung nodule in the right lower lobe. Follow-up recommendation is listed below. 1.5 cm thyroid nodule at the inferior aspect of the isthmus. Follow-up thyroid ultrasound is recommended. No acute abnormality in the abdomen or pelvis. Question of 6 mm cystic lesion in the head of the pancreas, nonspecific, may be related to a small pseudocyst or an intraductal papillary mucinous neoplasm. Follow-up MRI abdomen pancreatic mass protocol is recommended RECOMMENDATIONS: Fleischner Society guidelines for follow-up and management of incidentally detected pulmonary nodules: Single Solid Nodule: Nodule size less than 6 mm In a low-risk patient, no routine follow-up. In a high-risk patient, optional CT at 12 months. - Low risk patients include individuals with minimal or absent history of smoking and other known risk factors. - High risk patients include individuals with a history or smoking or known risk factors. Radiology 2017 http://pubs.rsna.org/doi/full/10.1148/radiol.[email or web address] D/ / Yeison Mccarty MD / Yeison Mccarty MD Interpreting Provider: Yeison Mccarty MD Neck CTA 12/11/17 12:01 IMPRESSION: 1. 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 2. A stent is seen within the distal aortic arch as well as the descending thoracic aorta. 3. There is a moderate focal stenosis involving the left common carotid artery. 4. 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 A diminutive caliber is seen of the cervical internal carotid arteries, left greater than right. D/ / Nestor Ruggiero MD / Nestor Ruggiero MD Interpreting Provider: Nestor Ruggiero MD Head CT 12/11/17 12:02 IMPRESSION: 1. Stable asymmetric left frontotemporal atrophy and chronic microvascular ischemic changes. 2. No acute intracranial abnormality. D/ / 12/11/2017 13:48:01 Cam Medrano MD / ernesto Interpreting Provider: Cam Medrano MD 1420 hrs.: We will continue fluid since patient has an elevated creatinine. Plan is for admission. 1526 hrs.: Hospitalist as accepted for admission. Because she will he has one good IV we are calling the PICC team down to do a midline IV for her. - Lab Data Result diagrams: 12/11/17 13:15 12/11/17 13:15 Lab Results 1012/11/17 12/11/17 Range/Units 13:15 13:15 13:15 WBC 7.9 (4.3-11.1) K/mcL RBC 4.82 (3.82-4.97) M/mcL Hgb 12.9 (11.5-15.4) g/dL Hct 42.1 (35.3-44.9) % MCV 87.3 (83.0-100.0) fL MCH 26.8 L (28.0-33.3) pg MCHC 30.6 L (31.6-35.5) g/dL RDW 14.9 H (11.5-14.5) % Plt Count 222 (140-400) K/mcL MPV 11.6 (9.4-12.4) fL Immature Gran % 0.4 (0-4) % Seg Neutrophils % 68.5 % Lymphocytes % 23.5 % Monocytes % 4.9 % Eosinophils % 2.1 % Basophils % 0.6 % Neutrophils # 5.4 (1.6-8.9) K/mcL Lymphocytes # 1.9 (0.6-4.6) K/mcL Monocytes # 0.4 (0.0-1.3) K/mcL Eosinophils # 0.2 (0.0-0.6) K/mcL Basophils # 0.1 (0.0-0.2) K/mcL PT 25.1 H (9.4-12.1) Seconds INR 2.2 APTT 40.8 H (26.0-36.0) Seconds Sodium 135 L (136-145) mEq/L Potassium 4.8 (3.5-5.1) mEq/L Chloride 108 H (98-107) mEq/L Carbon Dioxide 19 L (23-29) mEq/L BUN 31 H (6-20) mg/dL Creatinine 2.22 H (0.60-1.20) mg/dL Est GFR ( Amer) 27 L (> 60) Est GFR (Non-Af Amer) 23 L (> 60) BUN/Creatinine Ratio 14 (6-26) Glucose 126 H (70-105) mg/dL Calculated Osmolality 288 (280-300) Calcium 9.3 (8.6-10.3) mg/dL Phosphorus (2.7-4.5) mg/dL Magnesium (1.6-2.6) mg/dL Troponin I < 0.03 (< 0.04) ng/mL Blood Type Antibody Screen 12/11/17 12/11/17 Range/Units 13:15 13:15 WBC (4.3-11.1) K/mcL RBC (3.82-4.97) M/mcL Hgb (11.5-15.4) g/dL Hct (35.3-44.9) % MCV (83.0-100.0) fL MCH (28.0-33.3) pg MCHC (31.6-35.5) g/dL RDW (11.5-14.5) % Plt Count (140-400) K/mcL MPV (9.4-12.4) fL Immature Gran % (0-4) % Seg Neutrophils % % Lymphocytes % % Monocytes % % Eosinophils % % Basophils % % Neutrophils # (1.6-8.9) K/mcL Lymphocytes # (0.6-4.6) K/mcL Monocytes # (0.0-1.3) K/mcL Eosinophils # (0.0-0.6) K/mcL Basophils # (0.0-0.2) K/mcL PT (9.4-12.1) Seconds INR APTT (26.0-36.0) Seconds Sodium (136-145) mEq/L Potassium (3.5-5.1) mEq/L Chloride (98-107) mEq/L Carbon Dioxide (23-29) mEq/L BUN (6-20) mg/dL Creatinine (0.60-1.20) mg/dL Est GFR ( Amer) (> 60) Est GFR (Non-Af Amer) (> 60) BUN/Creatinine Ratio (6-26) Glucose (70-105) mg/dL Calculated Osmolality (280-300) Calcium (8.6-10.3) mg/dL Phosphorus 3.1 (2.7-4.5) mg/dL Magnesium 2.1 (1.6-2.6) mg/dL Troponin I (< 0.04) ng/mL Blood Type A POSITIVE Antibody Screen NEGATIVE Attestation Statement - Attestation Attestation: This documentation is done with the assistance of Dragon dictation. Despite efforts made to ensure accuracy, there may be inaccuracies in senior analytic consultant or spelling and typographical errors. I examined this patient and my medical decision-making was reviewed with the Resident Physician. I agree with the documented findings, disposition and treatment plan as described except to the extent set forth below. Patient was seen and evaluated by Dr. Carranza and myself, I agree with his evaluation and management plan, I supervised the care the patient's stay. Medics were called today because patient did not feel well. She was having some chest pain across her anterior chest or shoulders. Going into her back. Been intermittent. She felt a little bit nauseous and felt like she could pass out. Medics noted her heart rate went down into the teens. It with a blood pressure down the 70s. They gave her fluids. Atropine and lidocaine through the IV as they did an IO as they could not get regular IV access. Patient does not pain at this time. 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 Because of this her symptoms are hypertension and differences and pressures on her arms vertigo had and do a angiogram of her chest even before she gets a creatinine back. Then oriented to her cardiac workup and she will most likely need admission.
--- NOTE | 2017-12-11 12:53 | Emergency Department Note ---
Disposition Clinical Impression: Bradycardia, Neck pain, JERMAINE (acute kidney injury), Pulmonary nodule Shoulder pain Qualifiers: Chronicity: acute Laterality: bilateral Qualified Code(s): M25.511 - Pain in right shoulder; M25.512 - Pain in left shoulder Disposition: Admitted As Inpatient Condition: Fair Referrals: Angie Bermudez [Primary Care Provider] - Forms: ED Satisfaction Letter Time of Disposition: 14:56 General Adult HPI - General Chief complaint: ED Chest Pain Stated complaint: Cardiac Time Seen by Provider: 12/11/17 11:58 Source: patient, EMS Mode of arrival: EMS Limitations: no limitations Nursing Notes Reviewed: Yes Vital Signs Reviewed: Yes - History of Present Illness HPI Narrative: 57-year-old female persists for evaluation of not feeling right. Squad reports the patient was called saying that she was not feeling right. When squad arrived the patient was bradycardic and did bradycardia down into the teens. 2 mg of atropine were given. Patient was also hypotensive and was given a fluid bolus. Patient visited complaining of bilateral shoulder and neck jaw pain. Does have a cardiac history but states that she has never had a heart attack. Patient states she also has a history of a stroke. Patient denies any fevers or cough. Notes pain primarily in the upper neck. Patient denies any abdominal pain pain. Patient states she has had a history of an aortic injury in the past as related to trauma. Pain Scale: 8 - Related Data Home Medications Medication Instructions Recorded Confirmed Atenolol [Tenormin] 12.5 mg PO DAILY 08/17/17 12/11/17 Docusate Sodium [Dok] 100 mg PO BID PRN 08/17/17 12/11/17 Furosemide [Lasix] 20 mg PO DAILY PRN 08/17/17 12/11/17 Gabapentin [Neurontin] 800 mg PO QID 08/17/17 12/11/17 Isosorbide MONOnitrate (24 HR) 30 mg PO DAILY 08/17/17 12/11/17 [Imdur] Meloxicam [Mobic] 15 mg PO DAILY 08/17/17 12/11/17 Mirtazapine [Remeron] 15 mg PO HS 08/17/17 12/11/17 Potassium Chloride [Klor-Con 10] 10 meq PO DAILY PRN 08/17/17 12/11/17 Ranitidine HCl [Acid Health/Safety Job Titles] 150 mg PO BID 08/17/17 12/11/17 Rosuvastatin Calcium 40 mg PO HS 08/17/17 12/11/17 Warfarin [Coumadin] 3 mg PO DAILY 08/17/17 12/11/17 Albuterol Sulfate [Ventolin Hfa] 2 puff IH Q4H PRN 12/11/17 12/11/17 Amlodipine Besylate 10 mg PO DAILY 12/11/17 12/11/17 Aspirin [Adult Aspirin] 81 mg PO DAILY 12/11/17 12/11/17 Cholecalciferol (D-3) [Vitamin D] 1,000 unit PO DAILY 12/11/17 12/11/17 Fluticasone/Vilanterol [Breo 1 puff IH DAILY 12/11/17 12/11/17 Ellipta 100-25 Mcg INH] Metformin HCl 500 mg PO BID 12/11/17 12/11/17 hydrOXYzine pamoate [HydrOXYzine 25 - 50 mg PO Q6H PRN 12/11/17 12/11/17 Pamoate] Previous Rx's Medication Instructions Recorded Lisinopril [Zestril] 10 mg PO DAILY #30 tablet 08/19/17 Allergies Allergy/AdvReac Type Severity Reaction Status Date / Time Sulfa (Sulfonamide Allergy Swelling Verified 08/17/17 18:55 Antibiotics) of Lip/Tongue/Throat azithromycin AdvReac Abdominal Verified 08/17/17 18:55 Pain All systems ED: reviewed and negative except as stated. 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: no AGENCY SALES DIRECTOR history - Social History Smoking Status: Current every day smoker Smokeless Tobacco Status: No Alcohol use: Reports: none Drug use: Reports: none Physical Exam - General Limitations: no limitations General appearance: alert, in no apparent distress - Head Head exam: atraumatic, normocephalic, normal inspection - Eye Eye exam: Present: normal appearance, PERRL, EOMI - ENT ENT exam: normal exam, mucous membranes moist - Neck Neck exam: Present: normal inspection - Chest Chest inspection: Present: normal inspection, symmetric chest wall rise - Respiratory Respiratory exam: Present: normal lung sounds bilaterally. Absent: respiratory distress - Cardiovascular Cardiovascular exam: Present: normal rhythm, bradycardia. Absent: systolic murmur - Abdominal Exam Abdominal exam: Present: soft, Non-Tender - Extremities Exam Extremities exam: Present: normal inspection, other (Patient does have asymmetric blood pressure readings with increased blood pressures in the left compared to right.). Absent: pedal edema - Back Exam Back exam: Present: normal inspection - Neurological Exam Neurological exam: Present: alert, oriented X3, CN II-XII intact - Skin Skin exam: Present: warm, dry, intact, normal color Course Course Narrative: Patient seen and examined. Patient is hemodynamically stable. Concerns for aortic pathology. Patient will be sent over for a CT scan of the head neck chest abdomen pelvis. - Reevaluation(s) Reevaluation #1: Patient denied pain currently. Awaiting labs and CT imaging. Time: 13:30 Reevaluation #2: Patient's resting comfortably. States her pain has resolved. The pressure and heart rate are normalized. Discussed the case with the hospitalist who recommended Mucomyst. Time: 14:51 Vital Signs Temperature 97.7 F 12/11/17 11:53 Pulse Rate 67 12/11/17 11:53 Respiratory Rate 16 12/11/17 11:53 Blood Pressure 67/49 12/11/17 11:53 O2 Sat by Pulse Oximetry 100 12/11/17 11:53 Temperature 97.7 F 12/11/17 11:53 Pulse Rate 65 12/11/17 14:41 Respiratory Rate 20 12/11/17 14:41 Blood Pressure 127/81 12/11/17 14:41 O2 Sat by Pulse Oximetry 96 12/11/17 14:41 Oxygen Delivery Oxygen Delivery Room Air Medical Decision Making - MDM Narrative Medical decision making narrative: Patient presented with bilateral shoulder pain and neck pain. EMS report the patient was sinus bradycardic in the teens requiring 2 mg of atropine. Upon arrival the patient's heart is normal. Patient did have differential blood pressures complaining of bilateral shoulder pain. Initially concerned about aortic pathology. Patient patient's prior labs with normal kidney function the patient was rushed to CT scan for angiographic studies. Accompanied the patient to the CT scanner. Patient states that her pain had resolved. Patient' s troponins negative. Labs are concerning for acute kidney injury likely secondary to prerenal cause. Patient was given 2 L of fluid. Possible is recommended Mucomyst. Patient was also placed on a rate. At this point it is unclear exactly what caused the patient's bradycardia earlier today. It appears to be no conduction abnormalities noted on her EKG. Patient will be admitted for observation and to ensure that her kidney function and proves. Patient is agreeable to plan of care. - Lab Data Lab results reviewed: Yes I reviewed the patient's lab results. Result diagrams: 12/11/17 13:15 12/11/17 13:15 Lab Results 12/11/17 12/11/17 12/11/17 Range/Units 13:15 13:15 13:15 WBC 7.9 (4.3-11.1) K/mcL RBC 4.82 (3.82-4.97) M/mcL Hgb 12.9 (11.5-15.4) g/dL Hct 42.1 (35.3-44.9) % MCV 87.3 (83.0-100.0) fL MCH 26.8 L (28.0-33.3) pg MCHC 30.6 L (31.6-35.5) g/dL RDW 14.9 H (11.5-14.5) % Plt Count 222 (140-400) K/mcL MPV 11.6 (9.4-12.4) fL Immature Gran % 0.4 (0-4) % Seg Neutrophils % 68.5 % Lymphocytes % 23.5 % Monocytes % 4.9 % Eosinophils % 2.1 % Basophils % 0.6 % Neutrophils # 5.4 (1.6-8.9) K/mcL Lymphocytes # 1.9 (0.6-4.6) K/mcL Monocytes # 0.4 (0.0-1.3) K/mcL Eosinophils # 0.2 (0.0-0.6) K/mcL Basophils # 0.1 (0.0-0.2) K/mcL PT 25.1 H (9.4-12.1) Seconds INR 2.2 APTT 40.8 H (26.0-36.0) Seconds Sodium 135 L (136-145) mEq/L Potassium 4.8 (3.5-5.1) mEq/L Chloride 108 H (98-107) mEq/L Carbon Dioxide 19 L (23-29) mEq/L BUN 31 H (6-20) mg/dL Creatinine 2.22 H (0.60-1.20) mg/dL Est GFR ( Amer) 27 L (> 60) Est GFR (Non-Af Amer) 23 L (> 60) BUN/Creatinine Ratio 14 (6-26) Glucose 126 H (70-105) mg/dL Calculated Osmolality 288 (280-300) Calcium 9.3 (8.6-10.3) mg/dL Phosphorus (2.7-4.5) mg/dL Magnesium (1.6-2.6) mg/dL Troponin I < 0.03 (< 0.04) ng/mL Blood Type Antibody Screen 12/11/17 12/11/17 Range/Units 13:15 13:15 WBC (4.3-11.1) K/mcL RBC (3.82-4.97) M/mcL Hgb (11.5-15.4) g/dL Hct (35.3-44.9) % MCV (83.0-100.0) fL MCH (28.0-33.3) pg MCHC (31.6-35.5) g/dL RDW (11.5-14.5) % Plt Count (140-400) K/mcL MPV (9.4-12.4) fL Immature Gran % (0-4) % Seg Neutrophils % % Lymphocytes % % Monocytes % % Eosinophils % % Basophils % % Neutrophils # (1.6-8.9) K/mcL Lymphocytes # (0.6-4.6) K/mcL Monocytes # (0.0-1.3) K/mcL Eosinophils # (0.0-0.6) K/mcL Basophils # (0.0-0.2) K/mcL PT (9.4-12.1) Seconds INR APTT (26.0-36.0) Seconds Sodium (136-145) mEq/L Potassium (3.5-5.1) mEq/L Chloride (98-107) mEq/L Carbon Dioxide (23-29) mEq/L BUN (6-20) mg/dL Creatinine (0.60-1.20) mg/dL Est GFR ( Amer) (> 60) Est GFR (Non-Af Amer) (> 60) BUN/Creatinine Ratio (6-26) Glucose (70-105) mg/dL Calculated Osmolality (280-300) Calcium (8.6-10.3) mg/dL Phosphorus 3.1 (2.7-4.5) mg/dL Magnesium 2.1 (1.6-2.6) mg/dL Troponin I (< 0.04) ng/mL Blood Type A POSITIVE Antibody Screen NEGATIVE - Radiology Data Radiology results reviewed: Yes I reviewed the patient's radiology results. Neck CTA 12/11/17 12:01 IMPRESSION: 1. 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 2. A stent is seen within the distal aortic arch as well as the descending thoracic aorta. 3. There is a moderate focal stenosis involving the left common carotid artery. 4. 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 A diminutive caliber is seen of the cervical internal carotid arteries, left greater than right. D/ / Nestor Ruggiero MD / Nestor Ruggiero MD Interpreting Provider: Nestor Ruggiero MD Head CT 12/11/17 12:02 IMPRESSION: 1. Stable asymmetric left frontotemporal atrophy and chronic microvascular ischemic changes. 2. No acute intracranial abnormality. D/ / 12/11/2017 13:48:01 Cam Medrano MD / ernesto Interpreting Provider: Cam Medrano MD - EKG Data EKG #1 EKG shows normal: sinus rhythm Rate: normal Rhythm: NSR [place]/QRS: normal, IVCD T wave inversions noted in: aVR, v1 Interpretation: no acute changes S.B.A.R. - S.B.A.R. Situation: Demographics Background: Presenting Complaint Assessment: Vital Signs, Course and respsone to treatment, Patient/Family Expectation Recommendation: Barrier(s) to disposition, Recommendation based on pending studies, treatments, or consults SMore Report Given to: Dr. Alyssa Murphy Repor Time: 14:59
[2017-12-11 13:51] LABS: Basophils # 0.1 K/mcL (0.0-0.2); Basophils % 0.6 %; Eosinophils # 0.2 K/mcL (0.0-0.6); Eosinophils % 2.1 %; Hematocrit 42.1 % (35.3-44.9); Hemoglobin 12.9 g/dL (11.5-15.4); Immature Granulocytes % 0.4 % (0-4); Lymphocytes # 1.9 K/mcL (0.6-4.6); Lymphocytes % 23.5 %; Mean Corpuscular HGB Conc 30.6 g/dL (31.6-35.5); Mean Corpuscular Hemoglobin 26.8 pg (28.0-33.3); Mean Corpuscular Volume 87.3 fL (83.0-100.0); Mean Platelet Volume 11.6 fL (9.4-12.4); Monocytes # 0.4 K/mcL (0.0-1.3); Monocytes % 4.9 %; Neutrophils # 5.4 K/mcL (1.6-8.9); Platelet Count 222 K/mcL (140-400); Red Blood Count 4.82 M/mcL (3.82-4.97); Red Cell Distribution Width 14.9 % (11.5-14.5); Segmented Neutrophils % 68.5 %
[2017-12-11 13:58] LABS: INR 2.2; Prothrombin Time 25.1 Seconds (9.4-12.1)
[2017-12-11 14:01] LABS: Activated Partial Thrombo Time 40.8 Seconds (26.0-36.0); Magnesium 2.1 mg/dL (1.6-2.6); Phosphorous 3.1 mg/dL (2.7-4.5)
[2017-12-11 14:05] LABS: BUN/Creatinine Ratio 14 (6-26); Blood Urea Nitrogen 31 mg/dL (6-20); Calcium 9.3 mg/dL (8.6-10.3); Carbon Dioxide 19 mEq/L (23-29); Chloride 108 mEq/L (98-107); Glucose 126 mg/dL (70-105); Osmolality,Calculated 288 (280-300); Potassium 4.8 mEq/L (3.5-5.1); Sodium 135 mEq/L (136-145); eGFR For Non-African Americans 23 (> 60)
[2017-12-11 14:07] LABS: Troponin I < 0.03 ng/mL (< 0.04)
[2017-12-11] MEDS ORDERED: *HR* Acetylcysteine 20% 600 MG/3 ML ORAL SYRINGE PO SCH (14:51)
[2017-12-11] MEDS ORDERED: 0.9 % Sodium Chloride 1,000 ML IVC SCH (15:00)
[2017-12-11] MEDS ORDERED: Naloxone 0.4 MG/ML INJ IVP PRN (16:18)
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
[2017-12-11] MEDS ORDERED: *HR* Dextrose 50 % in Water (Syg) 50 ML SYRINGE IVP PRN (16:50)
[2017-12-11] MEDS ORDERED: D5% in Water 1,000 ML IVC PRN (16:50)
[2017-12-11] MEDS ORDERED: Dextrose Gel 15 GM/37.5 ML TUBE PO PRN ×2 (16:50)
[2017-12-11 17:24] LABS: Estimated Average Glucose 189 mg/dl; Hemoglobin A1C 8.2 %
[2017-12-11 17:29] LABS: Thyroid Stimulating Hormone 2.891 mcIU/mL (0.340-5.600)
[2017-12-11] MEDS: Gabapentin 400 MG CAPSULE PO SCH ×2 (18:24→20:46)
[2017-12-11] MEDS: Insulin LISPRO 300 UNITS/3 ML VIAL SQ SCH (20:28)
[2017-12-11] MEDS: Famotidine 20 MG TABLET PO SCH (20:46)
[2017-12-11] MEDS: Mirtazapine 15 MG TABLET PO SCH (20:46)
[2017-12-12] MEDS: Insulin LISPRO 300 UNITS/3 ML VIAL SQ SCH ×4 (02:34→16:53)
[2017-12-12 05:32] LABS: INR 2.1
[2017-12-12 05:34] LABS: Basophils # 0.1 K/mcL (0.0-0.2); Basophils % 0.8 %; Eosinophils # 0.2 K/mcL (0.0-0.6); Eosinophils % 3.7 %; Immature Granulocytes % 0.2 % (0-4); Lymphocytes # 2.4 K/mcL (0.6-4.6); Lymphocytes % 39.3 %; Mean Corpuscular HGB Conc 32.3 g/dL (31.6-35.5); Mean Corpuscular Hemoglobin 27.2 pg (28.0-33.3); Mean Corpuscular Volume 84.3 fL (83.0-100.0); Mean Platelet Volume 10.8 fL (9.4-12.4); Monocytes # 0.5 K/mcL (0.0-1.3); Platelet Count 169 K/mcL (140-400); Red Blood Count 4.15 M/mcL (3.82-4.97); Red Cell Distribution Width 14.7 % (11.5-14.5)
[2017-12-12 05:38] LABS: Hemoglobin 11.3 g/dL (11.5-15.4)
[2017-12-12 06:03] LABS: Calcium 8.6 mg/dL (8.6-10.3); Magnesium 1.8 mg/dL (1.6-2.6); Potassium 4.7 mEq/L (3.5-5.1)
[2017-12-12] MEDS: amLODIPine 5 MG TABLET PO SCH (08:14)
[2017-12-12] MEDS: Famotidine 20 MG TABLET PO SCH ×2 (08:14→20:23)
[2017-12-12] MEDS: Aspirin Enteric Coated 81 MG Tablet PO SCH (08:15)
[2017-12-12] MEDS: Gabapentin 400 MG CAPSULE PO SCH ×4 (08:15→20:23)
[2017-12-12] MEDS: Cholecalciferol (D-3) 1,000 UNIT TABLET PO SCH (08:15)
[2017-12-12] MEDS: (Fluticasone/Vilanterol [Breo Ellipta 100-25 Mcg Inh] IH SCH (08:16)
[2017-12-12] MEDS: *HR* Acetylcysteine 20% 600 MG/3 ML ORAL SYRINGE PO SCH ×2 (08:16→20:22)
[2017-12-12] MEDS ORDERED: *HR* Warfarin 3 MG TABLET PO SCH (09:00)
[2017-12-12] MEDS ORDERED: Isosorbide MONOnitrate (24 HR) 30 MG TAB.ER.24H PO SCH (09:00)
[2017-12-12] MEDS ORDERED: Regadenoson 0.4 MG/5 ML SYRINGE IVP ONE (09:35)
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
--- NOTE | 2017-12-12 14:29 | Electrocardiograph Report ---
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
[2017-12-12] MEDS: Mirtazapine 15 MG TABLET PO SCH (20:23)
[2017-12-13] MEDS: Insulin LISPRO 300 UNITS/3 ML VIAL SQ SCH ×3 (00:58→11:21)
[2017-12-13] MEDS ORDERED: Regadenoson 0.4 MG/5 ML SYRINGE IVP ONE (05:41)
[2017-12-13 06:09] LABS: Basophils % 0.7 %; Eosinophils # 0.3 K/mcL (0.0-0.6); Hematocrit 37.3 % (35.3-44.9); Hemoglobin 12.1 g/dL (11.5-15.4); Immature Granulocytes % 0.2 % (0-4); Lymphocytes # 2.3 K/mcL (0.6-4.6); Mean Corpuscular HGB Conc 32.4 g/dL (31.6-35.5); Mean Corpuscular Hemoglobin 27.3 pg (28.0-33.3); Mean Platelet Volume 10.8 fL (9.4-12.4); Monocytes # 0.4 K/mcL (0.0-1.3); Monocytes % 7.7 %; Neutrophils # 2.5 K/mcL (1.6-8.9); Platelet Count 192 K/mcL (140-400); Red Blood Count 4.44 M/mcL (3.82-4.97); Red Cell Distribution Width 14.4 % (11.5-14.5); Segmented Neutrophils % 45.4 %
[2017-12-13 06:27] LABS: Calcium 9.2 mg/dL (8.6-10.3); Potassium 4.2 mEq/L (3.5-5.1)
[2017-12-13] MEDS: *HR* Acetylcysteine 20% 600 MG/3 ML ORAL SYRINGE PO SCH (08:15)
[2017-12-13] MEDS: (Fluticasone/Vilanterol [Breo Ellipta 100-25 Mcg Inh] IH SCH (08:15)
[2017-12-13] MEDS: Aspirin Enteric Coated 81 MG Tablet PO SCH (08:15)
[2017-12-13] MEDS: Gabapentin 400 MG CAPSULE PO SCH ×2 (08:15→11:20)
[2017-12-13] MEDS: amLODIPine 5 MG TABLET PO SCH (08:15)
[2017-12-13] MEDS: Cholecalciferol (D-3) 1,000 UNIT TABLET PO SCH (08:16)
[2017-12-13] MEDS: Famotidine 20 MG TABLET PO SCH (08:16)
[2017-12-13 11:26] VITALS: BP 195/87
[2017-12-13] MEDS ORDERED: Isosorbide MONOnitrate (24 HR) 30 MG TAB.ER.24H PO SCH (14:51)
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
== END 2017-12-13 17:57 | disposition home or self-care (01) ==
LOC: EMEROOARM 11:52 → 3BNU 11:52
PROVIDERS: ADMIT Family Medicine; ATTEND Family Medicine